=== PATIENT | female | born 1990 | race Caucasian/White ===

== ENCOUNTER 2021-07-01 06:31 | Inpatient (IN) | payer BC, SELFPAY ==
[2021-07-01] VITALS (57 sets, daily range): BP systolic 104–136; BP diastolic 64–115; PULSE 30–157; RESP 14–18; TEMP 36.3–37.1; O2SAT 98–100; BMI 25.9
--- NOTE | 2021-07-01 07:22 | PM.IMHP ---
H&P: HPI History of Present Illness Date/Time: -year-old 1 para 0 whose last menstrual period was 10/09/2020 whose EDC is 07/16/2021, confirmed by 10 week ultrasound presents with spontaneous rupture membranes at term with breech presentation. This was apparently a known breech presentation and she was scheduled for on the she ruptured membranes approximately 0330 and is doron regularly and has 4cm and breech. section has been discussed with risks and benefits discussed in full 07:22 Chief Complaint: rupture membranes at term Review of Systems Review of Systems: All systems reviewed & are unremarkable except as noted in HPI and below PMFSH Family History Family History Sibling Diabetes mellitus Father Hypertension Grandparent Alzheimer disease Social History Social History Substance use: never Spiritual care concerns: No Meds Home Medications and Allergies Home Medications Medication Instructions Recorded Confirmed Type amoxicillin 500 mg PO Q8H 06/26/21 06/26/21 History prenat.vits,markell,[id number] 1 tablet PO DAILY 06/26/21 06/26/21 History [ #2] Allergies Allergy/AdvReac Type Severity Reaction Status Date / Time No Known Allergies Allergy Verified 06/26/21 12:28 Vital Signs Vital Signs - 24 hr 07/01/21 06:57 07/01/21 07:00 07/01/21 07:15 Pulse Rate 79 89 89 Blood Pressure 121/81 118/79 123/84 Exam Const: General: no acute distress Eyes: General: appearance normal, both eyes and all related structures Neck: Neck: supple and no JVD Thyroid: thyroid normal Resp: Effort & Inspection: normal respiratory effort Auscultation: clear to auscultation bilaterally Cardio: Rate: regular rate Rhythm: regular rhythm GI: Inspection: non-distended GI Palp: Yes Soft to palpation, No Tenderness to palpation present (GI) and No Guarding due to palpation present (GI) Auscultation: normal bowel sounds : External Female Exam: normal external appearance Speculum Exam - Vagina: normal appearance of the vagina and other ( clear fluid is leaking) Speculum Exam - Cervix: Cervical os closed ( cervix is 4cm by RN exam. Bedside ultrasound reveals natalie breech present) and Other cervical findings present ( contractions are irregular and heart tones were reassuring) Skin: General skin exam: no rashes or lesions noted Extrem: General: normal to inspection and no edema Psych: Mental Status: mental status grossly normal Affect: normal affect Assessment and Plan Additional Plan impression: Term with spontaneous rupture membranes breech Plan primary low-transverse section
--- NOTE | 2021-07-01 07:25 | WPDHPUPDATE1 ---
History and Physical Update Update Date/Time: 07/01/21 07:25 History and Physical has been reviewed, including an updated exam of the patient. There are NO changes in the patient's condition. Risks, benefits, and alternatives have been discussed and questions answered. Patient agrees to proceed with procedure.
[2021-07-01 07:36] LABS: Basophils Percent Auto 0.3 % (0.2-1.2); Eosinophils Absolute Auto 0.1 K/mm3 (0-0.3); Eosinophils Percent Auto 0.6 % (0-4.4); Hematocrit 34.5 % (37.0-47.0); Hemoglobin 11.8 g/dL (12.0-15.0); Immature Granulocyte Absolute 0.14 K/mm3 (0.00-0.031); Immature Granulocyte Percent A 1.4 % (0-0.5); Lymphocytes Absolute Auto 2.28 K/mm3 (0.9-3.2); Lymphocytes Percent Auto 22.1 % (18.3-44.2); Mean Corpuscular HGB Conc 34.2 g/dl (32-36); Mean Corpuscular Hemoglobin 31.7 pg (26-34); Mean Corpuscular Volume 92.7 fl (80-100); Mean Platelet Volume 10.1 fl (7.4-10.4); Monocytes Absolute Auto 0.6 K/mm3 (0.1-0.6); Monocytes Percent Auto 5.6 % (2.6-8.5); Neutrophils Absolute Auto 7.2 K/mm3 (1.3-6.7); Platelet Count Result 251 k/mm3 (150-375); Red Blood Count 3.72 M/mm3 (4.2-5.4); Red Cell Distribution Width 12.3 % (11.5-14.5); White Blood Count 10.3 K/mm3 (4.5-10.0)
--- NOTE | 2021-07-01 07:38 | LDADM ---
This patient, Erinn Blas, was admitted to Labor/Delivery/Recovery 105 on 07/01/21 at 06:31. Plans for labor, pain management and were discussed with patient. Patient/family oriented to hospital policies and general routines including ID bracelet, bed and alarms, visiting hours, pain management, procedures, bathroom and other care routines, personal items, smoking policy, room service/diet and guest tray routines, infant security routines, and visiting hours. Patient/Family are encouraged to report perceived risks to care and to ask questions if they do not understand what they are told or what they should do. See OBIX for further documentation.
[2021-07-01] MEDS: LACTATED RINGERS 1,000 ML 125 ML IV CONT (07:47)
[2021-07-01] MEDS: FAMOTIDINE 20 MG/2 ML VIAL IV PUSH (07:57)
--- NOTE | 2021-07-01 08:04 | WPDANESEPPF ---
Anes - Initial Pre Proc Eval Procedure: Operation Date: 07/01/21 08:00 Proposed Procedures p Section - Chance Apple MD Date/Time: 07/01/21 08:04 Surgeon: Marcela Pre Op Diagnosis: Breech Patient Data Age: 31 Gender: F Height: 1.78 m Weight: 82 kg Last Vital Signs Pulse 77 07/01/21 07:30 BP 133/78 07/01/21 07:30 Allergies Allergy/AdvReac Type Severity Reaction Status Date / Time No Known Allergies Allergy Verified 06/26/21 12:28 Home Medications Medication Instructions Recorded Confirmed Type amoxicillin 500 mg PO Q8H 06/26/21 06/26/21 History prenat.vits,markell,[id number] 1 tablet PO DAILY 06/26/21 06/26/21 History [ #2] Laboratory Tests 07/01/21 07/01/21 07:23 07:23 WBC 10.3 K/mm3 H K/mm3 (4.5-10.0) RBC 3.72 M/mm3 L M/mm3 (4.2-5.4) Hgb 11.8 g/dL L g/dL (12.0-15.0) Hct 34.5 % L % (37.0-47.0) MCV 92.7 fl fl (80-100) MCH 31.7 pg pg (26-34) MCHC 34.2 g/dl g/dl (32-36) RDW 12.3 % % (11.5-14.5) Plt Count 251 k/mm3 k/mm3 (150-375) MPV 10.1 fl fl (7.4-10.4) Immature Gran % (Auto) 1.4 % H % (0-0.5) Neut % (Auto) 70.0 % % (45.5-73.1) Lymph % (Auto) 22.1 % % (18.3-44.2) [place] % (Auto) 5.6 % % (2.6-8.5) Eos % (Auto) 0.6 % % (0-4.4) Baso % (Auto) 0.3 % % (0.2-1.2) Lymph # (Auto) 2.28 K/mm3 K/mm3 (0.9-3.2) [place] # (Auto) 0.6 K/mm3 K/mm3 (0.1-0.6) Eos # (Auto) 0.1 K/mm3 K/mm3 (0-0.3) Baso # (Auto) 0.0 K/mm3 K/mm3 (0.0-0.1) Abs Immat Gran (auto) 0.14 K/mm3 H K/mm3 (0.00-0.031) Absolute Neuts (auto) 7.2 K/mm3 H K/mm3 (1.3-6.7) Absolute Nucleated RBC 0.0 K/mm3 K/mm3 (0.0-0.012) Nucleated RBC % 0.0 % % (0.0-0.2) RPR Pending Patient hx anesthesia problems: none Family hx anesthesia problems: none Results Review: All pre-operative results and documents have been reviewed as part of the pre-operative evaluation. [facility] [place] Family History Family History Sibling Diabetes mellitus Father Hypertension Grandparent Alzheimer disease Social History Social History Smoking status: Never smoker Substance use: never Spiritual care concerns: No Anes - Eval Final PreProcedure Day of Procedure 07/01/21 08:04 Patient weight: overweight Heart: regular rate and rhythm Lungs: clear to auscultation and normal air movement Airway: Mallampati scale class II Neurological: alert and oriented Last oral intake: >/= 8 hours ASA classification: II Emergent: no Anesthetic plan: proceed Anesthesia type and monitoring: regional spinal and standard monitoring Results Review: All pre-operative results and documents have been reviewed as part of the pre-operative evaluation. Informed Consent: The patient's anesthetic plan and its attendant risks and benefits were discussed with the patient/family/POA. Questions were solicited and answers provided to the satisfaction of the patient/family/POA.
[2021-07-01] MEDS: ceFAZolin 2 GM/D5W 50 ML 2 GM/50 ML BAG IVPB (08:06)
--- NOTE | 2021-07-01 08:57 | W.PM.PROC2 ---
Procedure Note - Detailed Date of Procedure 07/01/21 Pre-op Diagnosis Breech Post-op Diagnosis same Procedure Performed Primary low-transverse section Surgeon Eduardo Jacobsen MD Anesthesia spinal Indications This is a 31-year-old 1 para 0 who ruptured membranes at 38 weeks with breech presentation Findings Breech male 6lb 12oz Apgars 9 and 9 at 1 and 5minutes respectively Description of Procedure Patient was admitted with spontaneous rupture membranes in active labor 38 weeks gestation. Ultrasound revealed breech presentation. After obtaining informed consent she was wheeled to the back prepped draped in the normal sterile fashion placed in the supine position. Under excellent spinal anesthetic the abdomen was entered in Pfannenstiel fashion progressive layers of fascia. The fascia incised midline number out fashion bilaterally underlying muscles sharply dissected parietal peritoneum 0 by Shirley clamps. This was sharply dissected superiorly and inferiorly to the dome bladder. Bladder blade was placed a bladder flap was formed and a bladder blade returned. A low transverse incision made in the breech delivered to the maternal right. The legs were delivered the arms were delivered medially and the head delivered in the flexed position. The cord was clamped x2 and cut and infant passed off the table given Apgars of 9 [id number]. Cord blood was drawn and placenta delivered intact manually. Uterus delivered on the abdomen wrapped in a moist towel. After assuring no membranes or debris remained in the uterus uterus was closed with continuous running locking 0 Vicryl from lateral edge to lateral edge followed by a 2nd imbricating running locking 0 Vicryl from lateral edge to lateral edge. Hemostasis was assured. Ovaries and tubes appeared within normal limits and the uterus returned the abdomen. Blood clots and debris removed from the pelvis and the uterine incision inspected 1 last time and noted be hemostatic. The laps removed and accounted for. The fascia closed with continuous running 0 Vicryl from lateral edge to midline bilaterally. Irrigation the subcutaneous layer and the skin closed with 4 Monocryl and glue. QBL was 355. All sponge, needle, instrument counts were correct. There were no immediate complications Estimated Blood Loss 355 Drains No Packing No Pathology none sent Complications No immediate complications Condition stable Disposition floor
[2021-07-01] MEDS: OXYTOCIN 30 UNITS/NS 500 ML 30 UNITS/500 ML BAG 125 UNITS IV CONT (09:40)
--- NOTE | 2021-07-01 11:18 | OBPPTRN ---
Patient transferred to post room # 285 via stretcher and transferred to bed via maxi air.Support person present and in open crib. Oriented to unit, room, information board, rooming in, admission packet and security measures. PT introductions made and plan of care discussed per post op c section, pain management, breast feeding, daily care activities. PT and spouse both recipients of such instructions this shift. No barriers to learning identified and pt received instructions via one to one discussion, mom baby care guide and demonstrations. Patient verbalizes understanding.
[2021-07-01] MEDS: LANOLIN (LANSINOH) 7.5 GM CREAM 1 APPLIC TOPICAL (12:19)
[2021-07-01] MEDS: LANOLIN (LANSINOH) 7.5 GM CREAM 1 APPLIC (12:26)
[2021-07-01] MEDS: SIMETHICONE 80 MG TAB.CHEW (12:26)
[2021-07-01] MEDS: DEXTROSE 5%/0.45% SOD CHL 1,000 ML 125 ML IV CONT (14:35)
[2021-07-01] MEDS: HYDROcodone/acetaminophen (*CRX) 5-325 MG TABLET 1 TAB (15:14)
[2021-07-01] MEDS: DOCUSATE SODIUM 100 MG CAPSULE PO (16:21)
[2021-07-01] MEDS: SIMETHICONE 80 MG TAB.CHEW PO (16:21)
[2021-07-01] MEDS: HYDROcodone/acetaminophen (*CRX) 5-325 MG TABLET 1 TAB PO ×2 (16:22→21:31)
[2021-07-01] MEDS: KETOROLAC 30 MG/ML VIAL (*BKC) IV PUSH (16:23)
[2021-07-02] MEDS: KETOROLAC 30 MG/ML VIAL (*BKC) IV PUSH (00:23)
[2021-07-02 00:44] VITALS: BP 123/73; PULSE 67; RESP 18; TEMP 36.8
[2021-07-02 05:00] VITALS: BP 121/77; PULSE 70; RESP 18; TEMP 36.9
[2021-07-02 05:36] LABS: Basophils Percent Auto 0.3 % (0.2-1.2); Eosinophils Absolute Auto 0.2 K/mm3 (0-0.3); Eosinophils Percent Auto 1.2 % (0-4.4); Hematocrit 31.7 % (37.0-47.0); Hemoglobin 10.5 g/dL (12.0-15.0); Immature Granulocyte Absolute 0.07 K/mm3 (0.00-0.031); Immature Granulocyte Percent A 0.6 % (0-0.5); Lymphocytes Absolute Auto 2.25 K/mm3 (0.9-3.2); Lymphocytes Percent Auto 18.4 % (18.3-44.2); Mean Corpuscular HGB Conc 33.1 g/dl (32-36); Mean Corpuscular Hemoglobin 31.3 pg (26-34); Mean Corpuscular Volume 94.6 fl (80-100); Monocytes Absolute Auto 0.7 K/mm3 (0.1-0.6); Monocytes Percent Auto 5.8 % (2.6-8.5); Neutrophils Percent Auto 73.7 % (45.5-73.1); Platelet Count Result 212 k/mm3 (150-375); Red Blood Count 3.35 M/mm3 (4.2-5.4); Red Cell Distribution Width 12.5 % (11.5-14.5); White Blood Count 12.2 K/mm3 (4.5-10.0)
--- NOTE | 2021-07-02 07:01 | PM.OBPNVD ---
OB - PN: Subj Subjective Date/time seen: 07/02/21 07:01 Patient comments: no complaints and pain well controlled baby status: doing well and nursing well OB - PN: Obj Data Labs CBC & Chem 7: 07/02/21 05:29 Labs: Laboratory Results - last 24 hr 07/01/21 07/01/21 07/02/21 07:23 07:23 05:29 WBC 10.3 H 12.2 H RBC 3.72 L 3.35 L Hgb 11.8 L 10.5 L Hct 34.5 L 31.7 L MCV 92.7 94.6 MCH 31.7 31.3 MCHC 34.2 33.1 RDW 12.3 12.5 Plt Count 251 212 MPV 10.1 10.0 Immature Gran % (Auto) 1.4 H 0.6 H Neut % (Auto) 70.0 73.7 H Lymph % (Auto) 22.1 18.4 [place] % (Auto) 5.6 5.8 Eos % (Auto) 0.6 1.2 Baso % (Auto) 0.3 0.3 Lymph # (Auto) 2.28 2.25 [place] # (Auto) 0.6 0.7 H Eos # (Auto) 0.1 0.2 Baso # (Auto) 0.0 0.0 Abs Immat Gran (auto) 0.14 H 0.07 H Absolute Neuts (auto) 7.2 H 9.0 H Absolute Nucleated RBC 0.0 0.0 Nucleated RBC % 0.0 0.0 Blood Type A Positive Antibody Screen Negative OB - PN A/P Plan day: 1 Plan: routine care Time Spent With Patient Time: Total time spent is greater than 50% in coordination of care (as documented) at patient's floor/unit and/or counseling patient: Time with patient: less than 15 minutes Review of Systems Review of Systems: All systems reviewed & are unremarkable except as noted in HPI and below Exam Const: General: no acute distress Eyes: General: appearance normal, both eyes and all related structures Neck: Neck: supple and no JVD Thyroid: thyroid normal Resp: Effort & Inspection: normal respiratory effort Auscultation: clear to auscultation bilaterally Cardio: Rate: regular rate Rhythm: regular rhythm GI: Inspection: normal to inspection and incision (cdi) Percussion: Yes normal to percussion : General: Yes bladder normal to palpation External Female Exam: normal external appearance Speculum Exam - Vagina: normal vaginal discharge and No vaginal bleeding Speculum Exam - Cervix: nontender Bimanual exam- vagina & uterus: bladder normal to palpation and No Cervical tenderness present OB/external & speculum: No vaginal bleeding Skin: General skin exam: no rashes or lesions noted Extrem: General: normal to inspection and no edema Psych: Mental Status: mental status grossly normal Affect: normal affect
--- NOTE | 2021-07-02 07:18 | WPDANLDPN2 ---
Anes-Prog Note L&D Date/Time: 07/02/21 07:18 Comfortable throughout: section Neuraxial method: spinal Epidural/Spinal procedure site: clean & non-tender Neuro status: Neuro function grossly intact. Cardiovascular status: normal Respiratory status: normal Airway patency: baseline Mental status: baseline Post-Op hydration status: normal Vital Signs: Last Vital Signs Temp 36.9 C 07/02/21 05:00 Pulse 70 07/02/21 05:00 Resp 18 07/02/21 05:00 BP 121/77 07/02/21 05:00 Pulse Ox 99 07/01/21 16:20 Pain score (VAS): 3 I/O: Intake & Output 07/01/21 07/01/21 07/02/21 15:59 23:59 07:59 Intake Total 366 223 1319 Output Total 805 1000 1750 Balance -305 -600 -250 Post-procedural complaints: none Patient feedback: Patient satisfied with anesthetic care.
--- NOTE | 2021-07-02 07:18 | WPDANLDNPN2 ---
Anes-Prog Note L&D-Neuraxial Date/Time: 07/02/21 07:18 Neuraxial medications: intrathecal PF morphine Opiod-related complaints: none Patient feedback: Patient satisfied with post-operative pain management.
--- NOTE | 2021-07-02 07:30 | PC.NURSE ---
PT introductions made and plan of care discussed per post op c section, pain management, bottle feeding, daily care activities. PT and spouse both recipients of such instructions and no barriers to learning identified at this time. PT received instructions per one to one discussion, mom baby care guide and demonstrations per this shift. PT verbalized understanding of such care
[2021-07-02] MEDS: SIMETHICONE 80 MG TAB.CHEW PO (09:24)
[2021-07-02] MEDS: IBUPROFEN 600 MG TABLET PO ×3 (09:24→21:51)
[2021-07-02] MEDS: MULTIVIT/MIN/PREN/FOL AC/IRON TABLET 1 TAB PO (09:24)
[2021-07-02 09:25] VITALS: BP 131/76; PULSE 78; RESP 18; TEMP 36.9; O2SAT 100
[2021-07-02] MEDS: DOCUSATE SODIUM 100 MG CAPSULE PO ×2 (09:25→19:17)
[2021-07-02] MEDS: HYDROcodone/acetaminophen (*CRX) 5-325 MG TABLET 1 TAB PO ×3 (09:25→18:45)
[2021-07-02 19:10] VITALS: BP 123/77; PULSE 75; RESP 18; TEMP 37; O2SAT 100
[2021-07-03] MEDS: HYDROcodone/acetaminophen (*CRX) 5-325 MG TABLET 1 TAB PO ×5 (00:52→19:24)
[2021-07-03] MEDS: IBUPROFEN 600 MG TABLET PO ×3 (05:26→19:23)
[2021-07-03] MEDS: SIMETHICONE 80 MG TAB.CHEW PO ×2 (05:28→20:40)
[2021-07-03] MEDS: DOCUSATE SODIUM 100 MG CAPSULE PO ×2 (08:06→16:23)
[2021-07-03] MEDS: MULTIVIT/MIN/PREN/FOL AC/IRON TABLET 1 TAB PO (08:06)
[2021-07-03 08:15] VITALS: BP 134/83; PULSE 80; RESP 16; TEMP 36.8; O2SAT 100
--- NOTE | 2021-07-03 08:47 | PM.OBPNVD ---
OB - PN: Subj Subjective Date/time seen: 07/03/21 08:47 Narrative: Pain OK. Tolerating diet. OB - PN: Obj Data Labs CBC & Chem 7: 07/02/21 05:29 OB - PN A/P Plan Comments: A: POD#2, doing well. P: Routine care. Exam Narrative: AVSS I/O OK ABD soft, nontender, fundus firm. Incision c/d/i. EXT nontender
--- NOTE | 2021-07-03 09:05 | PC.NURSE ---
Mother called out for assist with feeding, reporting mix crusher operator discussed supplementation after due to weight loss. is at 9% at 48 hours. Mother states she feels is latching and nursing well. is able to freely thrust tongue past gum ridge and flange both lips. Skin is intact on both nipples, no redness and bruising noted. Discussed establishing in the late may be more difficult due to their immaturity, infant may be less alert, have less stamina, and have greater difficulty with latch, suck, and swallow. Infant?s feeding may impact mother?s milk supply, pumping may need to be initiated until milk supply is well established and infant is able to effectively breastfeed without supplementation. Reviewed infant feeding cues, frequencies, duration of feedings, feeding elimination flow sheet, and signs of adequate intake. Demonstrated stimulation techniques to wake infant for feeding. Assisted with to breast. Reviewed positioning/alignment in cross cradle, holding breast in ?U? hold and guided asymmetrical latch on. Reviewed rational for each. Infant able to latch correctly within a few attempts. nursed eagerly with steady draws and occasional swallowing noted, followed by long pausing noted. Reviewed signs of a correct latch, effective nursing and suck swallow ratio. Suggested mother stimulate while feeding to increase stimulation for milk supply, for increased intake and to assist with maintaining deep latch. Infant would respond to simulation with bursts of nursing followed with long pausing. would slip to shallow latch causing tenderness. Demonstrated how to adjust latch more deeply while feeding as needed. Mother reports she can feel the difference in latch with no tenderness. Discussed the difference of effective vs ineffective feeding. Reviewed infant is latching with good burst of suckling, he is not feeding consistently with adequate milk transfer at this time and could benefit from supplement after . Nipple care reviewed of lanolin after feedings, warm compresses as needed. Mother would prefer to weight for next feeding and weight check to be done. Instructed mother to call out for RN assistance if she is unable to latch for feeding or she has discomfort with nursing. Instructed feeding should be initiated three hours from start of last feeding or if feeding cues are noted before. Mother voiced understanding of information shared
[2021-07-03 10:10] LABS: Rapid Plasma Reagin Non-Reactive (NonReactive)
[2021-07-03] MEDS: LANOLIN (LANSINOH) 7.5 GM CREAM 1 APPLIC TOPICAL (10:59)
--- NOTE | 2021-07-03 12:30 | PC.NURSE ---
weight check down 40 grams from last weight check. Mother is now willing to supplement and initiate pumping. Demonstrated stimulation techniques to wake infant for feeding. Assisted with to breast. Reviewed positioning/alignment in cross cradle, holding breast in ?U? hold and guided asymmetrical latch on. Reviewed rational for each. Infant able to latch correctly within a few attempts. nursed eagerly with steady draws and occasional swallowing noted, followed by long pausing noted. Reviewed signs of a correct latch, effective nursing and suck swallow ratio. Suggested mother stimulate while feeding to increase stimulation for milk supply, for increased intake and to assist with maintaining deep latch. Infant would respond to simulation with bursts of nursing followed with long pausing. Infant has more rhythmical draws with longer bursts of suckling list feeding. Infant would slip to shallow latch causing tenderness. Demonstrated how to adjust latch more deeply while feeding as needed. Mother reports she can feel the difference in latch with no tenderness. Demonstrated paced feeding, infant nippled eagerly. Breast pump provided due to ineffective feeding. Instructions given on breast pump care and usage, pumping schedule, nipple care, and collection and storage of breast milk. Encouraged [id number], breast massage and manual expression to stimulate supply. Assessed patient for correct flange size, placement and draw. Patient verbalizes and demonstrates understanding of instructions. Instructed mother to call out for RN assistance if she is unable to latch for feeding or she has discomfort with nursing. Instructed feeding should be initiated three hours from start of last feeding or if feeding cues are noted before. Mother voiced understanding of information shared
[2021-07-03 20:20] VITALS: BP 131/82; PULSE 70; RESP 16; TEMP 36.3; O2SAT 99
--- NOTE | 2021-07-03 20:30 | PC.NURSE ---
Patient viewed the discharge video Mother & Baby Care, The First Two Weeks . Patient was given the opportunity and encouraged to ask questions. Patient verbalized understanding of information shared and has been given the mother/baby guide for home reference.
[2021-07-04] MEDS: HYDROcodone/acetaminophen (*CRX) 5-325 MG TABLET 1 TAB PO ×2 (00:02→09:24)
[2021-07-04] MEDS: SIMETHICONE 80 MG TAB.CHEW PO (00:02)
[2021-07-04 08:15] VITALS: BP 123/85; PULSE 81; RESP 16; TEMP 36.8; O2SAT 100
--- NOTE | 2021-07-04 08:56 | P.DS_ITS ---
DS: Admitting Diagnosis Discharge Date 07/04/21 Admitting Diagnosis IUP at term SROM Breech presentation DS: Discharge Diagnosis Discharge Diagnosis (1) Breech presentation delivered: Code(s): O32.1XX0 - Maternal care for breech presentation, not applicable or unspecified Status: Acute (2) SROM (spontaneous rupture of membranes): Status: Acute (3) Term : Code(s): Z34.90 - Encounter for supervision of normal , unspecified, unspecified trimester Status: Acute OB - DS: Summary OB Procedures : None OB Procedures Intrapartum: OB Procedures: : None Peripartum Data Procedures: Procedures Operation Date: 07/01/21 08:00 Actual Procedure Side Surgeon p Section Eduardo Jacobsen MD DS: Data Data Completed and Pending Labs on day of discharge: Labs from last 24 hours 07/01/21 07:23 RPR Non-reactive Discharge Plan Discharge Attending physician on discharge: Chance Apple Discharging Clinician: Chance Apple Patient Disposition: Home, Self-Care Activity: may shower, may drive after 2 weeks and pelvic rest Diet: regular Wound Care Instructions: incision open to air Discharge Instructions: Call or return if temperature above 100.4? F, increased abdominal pain, increased vaginal bleeding or any new problems. Stand Alone Forms: General Discharge Information Follow-up/Referrals: Chance Apple MD [Physician] - 4 Weeks Discharge Medications: New ibuprofen 600 mg tablet 600 mg PO QID PRN (Reason: cramps) Qty: 30 RF: 0 hydrocodone-acetaminophen 5-325 mg tablet 1 - 2 tablet PO Q6H PRN (Reason: pain) Qty: 30 RF: 0 No Action amoxicillin 500 mg Tablet 500 mg PO Q8H RF: 0 #2 Tablet 1 tablet PO DAILY RF: 0 Date of admission: 07/01/21 06:31 Primary Care Provider: PHYSICIAN,DIRECTOR OF PRODUCT DEVELOPMENT Admitting Provider: Chance Apple Attending physician on admission: Chance Apple Condition: Stable
--- NOTE | 2021-07-04 08:56 | PM.OBPNVD ---
OB - PN: Subj Subjective Date/time seen: 07/04/21 08:56 Narrative: Pain OK. Tolerating diet. Would like to go home. OB - PN: Obj Data Labs CBC & Chem 7: 07/02/21 05:29 Labs: Laboratory Results - last 24 hr 07/01/21 07:23 RPR Non-reactive OB - PN A/P Plan Comments: A: POD#3, doing well. P: Home to f/u 4 weeks. Exam Narrative: AVSS ABD soft, nontender, fundus firm. Incision c/d/i. EXT nontender
[2021-07-04] MEDS: IBUPROFEN 600 MG TABLET PO (09:23)
[2021-07-04] MEDS: MULTIVIT/MIN/PREN/FOL AC/IRON TABLET 1 TAB PO (09:23)
[2021-07-04] MEDS: DOCUSATE SODIUM 100 MG CAPSULE PO (09:23)
--- NOTE | 2021-07-04 09:45 | PC.NURSE ---
Observed mother is able to independently latch infant with appropriate positioning/alignment. She denies any nipple discomfort, is feeding as required and waking infant to feed if needed. is more awake and making eager attempts with and maintaining latch. Infant has had several effective feedings in the past 24 hours, all feedings is supplemented. Infant is currently meeting outcomes for weight, output, jaundice and feeding frequencies. has had weight loss, and infant PCP has suggested supplement after all breastfeedings until seen at follow up visit. Mother continues to pump after all feedings without difficulties or discomfort. Mother has a pump for home use. Feeding plan discussed, Feeding Plan is for mother to put infant to breast each feeding for up to 30 minutes, then pace feed supplement 20-25 mls and pump for 10-15 minutes. Discussed increasing supplementation as infant requires to satisfactions. Reviewed paced feeding and suggested to stop when is satisfied, as long as infant is having required output. With increased supplementation infant may not want to feed for 4 hours. Mother will continue to pump on feeding schedule and will increase session to 20 minutes if pumping every 4 hours. If infant begins to nurse effectively with long draws and frequent swallowing noted, infant may decrease supplementation and discontinue pumping. Advised not to discontinue supplement until a pre/post feeding evaluation by infant PCP, Follow up RN or LC is completed. Mother states she feels confident to continue feeding plan at home. Reviewed transition to breast milk, signs of adequate intake, and engorgement/relief. Instructed to call ICP if intake/output less than required. Reviewed regular medications mother is taking. Information provided per [place]. Reviewed community resources on the [facility] website and in the Mom/Baby guide. Information on outpatient services provided. Mother has no further questions at this time.
[2021-07-05 10:45] VITALS: BP 138/79; PULSE 78; RESP 16; TEMP 37.3; O2SAT 100
== END 2021-07-04 14:50 | disposition home or self-care (01) | DRG 788 ==
LOC: ANHLDR 08:04 → ANHOB2 11:30
PROVIDERS: Admitting Provider Obstetrics & Gynecology; Visit Provider Obstetrics & Gynecology
DX: O32.1XX0 Maternal care for breech presentation, not applicable or unspecified (principal); O69.2XX0 Labor and delivery complicated by other cord entanglement, with compression, not applicable or unspecified; Z3A.37 37 weeks gestation of pregnancy; Z37.0 Single live birth
CPT/HCPCS: 36415; 84112; 85025; 86592; 86850; 86900; 86901; A9270; J0690; J1885; J2274; J2370; J2405; J2590; J7120

== ENCOUNTER 2024-03-14 10:43 | Outpatient (CLI) | payer BC, SELFPAY ==
[2024-03-14 11:13] LABS: Hemoglobin 12.1 g/dL (12.0-15.0); Mean Corpuscular HGB Conc 33.6 g/dl (32-36); Mean Corpuscular Hemoglobin 31.8 pg (26-34); Mean Corpuscular Volume 94.7 fl (80-100); Mean Platelet Volume 9.9 fl (7.4-10.4); Platelet Count Result 258 k/mm3 (150-375); Red Cell Distribution Width 13.4 % (11.5-14.5); White Blood Count 9.2 K/mm3 (4.5-10.0)
[2024-03-15 01:21] LABS: Rapid Plasma Reagin Non-Reactive (NonReactive)
== END 2024-03-14 10:44 | disposition home or self-care (01) ==
LOC: ANHLAB 10:46
PROVIDERS: Visit Provider Obstetrics & Gynecology
DX: Z34.93 Encounter for supervision of normal pregnancy, unspecified, third trimester (principal); Z3A.00 Weeks of gestation of pregnancy not specified
CPT/HCPCS: 36415; 85027; 86592; 86850; 86900; 86901

== ENCOUNTER 2024-03-16 10:02 | Inpatient (IN) | payer BC, SELFPAY ==
[2024-03-16] VITALS (51 sets, daily range): BP systolic 104–135; BP diastolic 64–117; PULSE 43–92; RESP 14–19; TEMP 35.7–36.6; O2SAT 97–100; BMI 26.2
[2024-03-16] MEDS: ACETAMINOPHEN 500 MG TABLET 1000 MG PO (10:29)
[2024-03-16] MEDS: LACTATED RINGERS 1,000 ML 125 ML IV CONT ×2 (10:45→13:52)
--- NOTE | 2024-03-16 10:49 | LDADM ---
This patient, Erinn Blas, was admitted to Labor/Delivery/Recovery 119 on 03/16/24 at 10:02. Plans for labor, pain management and were discussed with patient. Patient/family oriented to hospital policies and general routines including ID bracelet, bed and alarms, visiting hours, pain management, procedures, bathroom and other care routines, personal items, smoking policy, room service/diet and guest tray routines, infant security routines, and visiting hours. Patient/Family are encouraged to report perceived risks to care and to ask questions if they do not understand what they are told or what they should do. See OBIX for further documentation.
--- NOTE | 2024-03-16 11:41 | PM.IMHP ---
H&P: HPI History of Present Illness Date/Time: 03/16/24 11:41 Chief Complaint: Here for repeat c section Narrative: 33 y/o at 39 3/7 weeks here for repeat . GBS neg. Review of Systems Review of Systems: All systems reviewed & are unremarkable except as noted in HPI and below PMFSH Past Medical History Medical History History of depression Surgical History Surgical History (Updated 03/16/24 @ 11:43 by Chance Apple MD) History of delivery Family History Family History Sibling Diabetes mellitus Father Hypertension Grandparent Alzheimer disease Social History Social History Smoking status: Never smoker Substance use: never Do You Feel Safe in your Home?: Yes Lack of Transportation: No Lack of Food: Never True Current Housing: I Have Housing Concerned About Future Housing: No Difficulty Paying Gas/Electric Bills: No Difficulty Paying for Meds: No Currently Unemployed: No Education: Bachelor's Degree Difficulty w/ Childcare or Family Care: No Spiritual care concerns: No Meds Home Medications and Allergies Home Medications Medication Instructions Recorded Confirmed Type prenat.vits,markell,rek-gmtd-vwbve 1 tablet PO DAILY 06/26/21 03/16/24 History fluoxetine 10 mg capsule 10 mg PO DAILY 02/24/24 03/16/24 History Allergies Allergy/AdvReac Type Severity Reaction Status Date / Time No Known Allergies Allergy Verified 03/16/24 10:46 Vital Signs Vital Signs - 24 hr 03/16/24 10:48 03/16/24 10:26 03/16/24 10:31 Pulse Rate 67 70 Blood Pressure 119/72 122/73 Oxygen Delivery Room Air 03/16/24 10:45 03/16/24 10:46 Pulse Rate 75 75 Blood Pressure 123/73 123/73 Oxygen Delivery Exam Const: Orientation/consciousness: patient oriented x3 Other: Well-developed, well-nourished female in no acute distress. Neck: Thyroid: thyroid normal Lymphatic: no lymphadenopathy noted (in neck, axilla or inguinal nodes) Resp: Effort & Inspection: normal respiratory effort Auscultation: clear to auscultation bilaterally Cardio: Rate: regular rate Rhythm: regular rhythm Heart sounds: S1 normal heart sound present and S2 normal heart sound present GI: Other: ABD: Soft, nontender, nondistended, gravid. FH 39 cm. FHR 150 bpm. No guarding or rebound tenderness. No hepatosplenomegaly. : General: Yes no CVA tenderness Other: Cervix closed Back/Spine/Pelvis: Back: no CVA tenderness Skin: General skin exam: normal color and no rashes or lesions noted Neuro: General: patient oriented x3 Extrem: Other: Extremities: nontender with no edema Psych: Mental Status: mental status grossly normal Affect: normal affect Assessment and Plan Assessment and plan (1) Term : Code(s): Z34.90 - Encounter for supervision of normal , unspecified, unspecified trimester Status: Acute Assessment and Plan: A: IUP at 39 3/7 weeks with prior , desiring repeat. P: Offered repeat . She understands risks of surgery to include risks of anesthesia, risks of pain, infection, bleeding, blood products, thromboembolic phenomena and damage to adjacent structures such as bowel, bladder, ureters, blood vessels and nerves. She understands all these risks and elects to proceed with surgery. (2) History of delivery: Code(s): Z98.891 - History of uterine scar from previous surgery Status: Acute
--- NOTE | 2024-03-16 11:42 | P.PNAN_ITS ---
Anes - Initial Pre Proc Eval Procedure: Operation Date: 03/16/24 12:00 Proposed Procedures p Repeat Section - Chance Apple MD Date/Time: 03/16/24 11:42 Surgeon: Chance Apple MD Pre Op Diagnosis: Repeat Patient Data Age: 33 Gender: F Height: 1.78 m Weight: 83 kg Last Vital Signs Pulse 75 03/16/24 10:46 BP 123/73 03/16/24 10:46 O2 Del Method Room Air 03/16/24 10:48 Allergies Allergy/AdvReac Type Severity Reaction Status Date / Time No Known Allergies Allergy Verified 03/16/24 10:46 Home Medications Medication Instructions Recorded Confirmed Type prenat.vits,markell,qaw-wgbz-bcces 1 tablet PO DAILY 06/26/21 03/16/24 History fluoxetine 10 mg capsule 10 mg PO DAILY 02/24/24 03/16/24 History Laboratory Tests 03/16/24 10:38 HIV 1&2 Ab/P24 Ag 4thGn Pending Patient hx anesthesia problems: none Family hx anesthesia problems: none Results Review: All pre-operative results and documents have been reviewed as part of the pre- operative evaluation. [facility] Past Medical History Medical History History of depression Surgical History Surgical History (Updated 03/16/24 @ 11:43 by Chance Apple MD) History of delivery Family History Family History Sibling Diabetes mellitus Father Hypertension Grandparent Alzheimer disease Social History Social History Smoking status: Never smoker Substance use: never Do You Feel Safe in your Home?: Yes Lack of Transportation: No Lack of Food: Never True Current Housing: I Have Housing Concerned About Future Housing: No Difficulty Paying Gas/Electric Bills: No Difficulty Paying for Meds: No Currently Unemployed: No Education: Bachelor's Degree Difficulty w/ Childcare or Family Care: No Spiritual care concerns: No Anes - Eval Final PreProcedure Day of Procedure 03/16/24 11:42 Patient weight: obese Heart: regular rate and rhythm Lungs: clear to auscultation and normal air movement Airway: Mallampati scale class II Neurological: alert and oriented Last oral intake: >/= 8 hours ASA classification: II Emergent: no Anesthetic plan: proceed Anesthesia type and monitoring: regional spinal and standard monitoring Results Review: All pre-operative results and documents have been reviewed as part of the pre- operative evaluation. Informed Consent: The patient's anesthetic plan and its attendant risks and benefits were discussed with the patient/family/POA. Questions were solicited and answers provided to the satisfaction of the patient/family/POA.
[2024-03-16 11:46] LABS: HIV 1/2 Ab P24 Ag Result Negative (Negative)
--- NOTE | 2024-03-16 11:51 | WPDHPUPDATE1 ---
History and Physical Update Update Date/Time: 03/16/24 11:51 History and Physical has been reviewed, including an updated exam of the patient. There are NO changes in the patient's condition. Risks, benefits, and alternatives have been discussed and questions answered. Patient agrees to proceed with procedure.
[2024-03-16] MEDS: FAMOTIDINE 20 MG/2 ML VIAL IV PUSH (11:57)
[2024-03-16] MEDS: ONDANSETRON INJ 4 MG/2 ML VIAL IV PUSH (11:57)
[2024-03-16] MEDS: ceFAZolin 2 GM/D5W 50 ML 2 GM/50 ML BAG IVPB (12:04)
--- NOTE | 2024-03-16 13:08 | P.PCNOB_ITS ---
OB - Delivery Note Procedure Delivery date: 03/16/24 Pre-op diagnosis: Previous Delivery Post-op Diagnosis: Same Induction method: None Delivery monitor: External FHT and External Uterine Procedure Performed: Repeat Surgeon: Chance Apple MD Anesthesia type: Spinal Description of Procedure/Findings: Findings: Normal-appearing uterus, tubes and ovaries. Meconium-stained fluid noted. Techniques: The patient was taken to the operating room where she was prepared and draped in the usual sterile fashion in dorsal supine position with a leftward tilt. She received cefazolin preoperatively. Spinal anesthesia was found to be adequate. A Pfannenstiel skin incision was made along the previous scar line and was carried through to the underlying layer of the fascia. The fascia was incised in the midline and the incision was extended laterally. The fascia was dissected free of the underlying rectus muscles. The rectus muscles were in the midline. The peritoneum was identified, tented up and entered sharply. The peritoneal incision was extended superiorly and inferiorly with good visualization of the bladder. The bladder blade was placed. The vesicouterine peritoneum was identified, tented up and entered sharply. The incision was extended laterally and the bladder flap was developed. The bladder blade was replaced. The uterus was then incised sharply in a transverse fashion along the lower uterine segment. The incision was extended laterally. The infant's head was delivered atraumatically to the sterile field, followed by the body. The nose and mouth were bulb suctioned. After a delay, the cord was clamped and cut. The was handed off the field. Cord blood was collected. The placenta was removed manually and was passed off the field. The uterus was exteriorized and cleared of all clots and debris. The uterine incision was reapproximated using 0 Monocryl in a running, locked fashion. A second, imbricating layer of the same suture was run. Excellent hemostasis re sulted as did excellent reapproximation of the normal anatomy. The uterus was returned the abdomen. The pelvis was irrigated copiously with warmed normal saline. Rigorous hemostasis was assured. The fascial layer was reapproximated using 0 Vicryl in a running fashion. The skin was closed with a running, subcuticular stitch of 4 0 Vicryl. Dermaflex was applied externally. Sponge, lap, needle and instrument counts were correct. The patient was taken to the recovery room in stable condition. The infant went to the nursery in stable condition. I was present and scrubbed the entire procedure. Specimen: Yes (cord blood) Estimated Blood Loss: 350 Drains: Yes (Baldwin) Packing: No Pathology: Yes (cord blood) Complications: None Condition: Stable Disposition: PACU [place] Baby Date of : 03/16/24 Time of : 12:35 Weeks of gestation at delivery: 39 Infant gender: Male Weight (pounds): 7 Weight (ounces): 2 presentation: vertex Placenta delivery description: Manual Removal and Normal Configuration Cord Vessel Description: 3 Vessels, Nuchal Cord (x2) and Delayed Cord Clamping score one minute: 8 score five minutes: 9
--- NOTE | 2024-03-16 13:10 | P.DS_ITS ---
DS: Admitting Diagnosis Discharge Date 03/18/24 Admitting Diagnosis IUP at 39 3/7 weeks Prior DS: Discharge Diagnosis Discharge Diagnosis (1) delivery delivered: Code(s): O82 - Encounter for delivery without indication Status: Acute OB - DS: Summary OB Procedures : None OB Procedures Intrapartum: OB Procedures: : None Peripartum Data Procedures: Procedures Operation Date: 03/16/24 12:00 <No data on this case meets the specified criteria> Time Spent with Patient Time attestation: Total time spent providing and/or coordinating discharge services: DS: Data Data Completed and Pending Labs on day of discharge: Labs from last 24 hours 03/16/24 10:38 HIV 1&2 Ab/P24 Ag 4thGn Negative Discharge Plan Discharge Attending physician on discharge: Chance Apple Discharging Clinician: Chance Apple Patient Disposition: Home, Self-Care Activity: may shower, may drive after 2 weeks and pelvic rest Diet: regular Wound Care Instructions: incision open to air Discharge Instructions: Call or return if temperature above 100.4? F, increased abdominal pain, increased vaginal bleeding or any new problems. Stand Alone Forms: General Discharge Information Follow-up/Referrals: Chance Apple MD [Physician] - 4 Weeks Discharge Medications: New hydrocodone-acetaminophen 5-325 mg tablet 1 - 2 tablet PO Q6H PRN (Reason: pain) Qty: 30 0RF ibuprofen 600 mg tablet 600 mg PO Q6H PRN (Reason: cramps) Qty: 30 0RF Continued prenat.vits,markell,unm-zfyd-yxqfr Tablet 1 tablet PO DAILY fluoxetine 10 mg Capsule 10 mg PO DAILY Date of admission: 03/16/24 10:02 Primary Care Provider: PHYSICIAN,MARKETING SUPPORT ASSISTANT Admitting Provider: Chance Apple Attending physician on admission: Chance Apple Condition: Stable
[2024-03-16] MEDS: OXYTOCIN 30 UNITS/NS 500 ML 30 UNITS/500 ML BAG 125 UNITS IV CONT (14:28)
--- NOTE | 2024-03-16 16:41 | PC.NURSE ---
0861. Consulted with patient to assess needs related to . Per mom she was able to breastfeed her 1st baby for a few weeks and then pumped and bottle fed. She reports she would like to exclusively breast feed this baby. We reviewed working with the infant, supporting breast, protecting her nipples with an optimal deep latch, good positioning, and good hand washing. Encouraged understanding the benefits of skin to skin, responding to feeding cues, frequencies of feeding 8-12 times in 24 hours (approximately 2-3 hours), duration of feedings, milk production, intake/output feeding sheet and signs of adequate intake encouraging swallowing at the breast. Reviewed positioning and alignment, supporting breast, off-centered (asymmetrical latch) and leading with the chin with big, open, wide gape. Infant latched optimally to the left breast in [cross cradle] position. Education given to the mother of how to visualize the suckling (with good rocking jaw motion) swallows (dropping of the lower jaw) and how to listen for drinking at the breast (the ka sound). The was [able] to maintain latch without discomfort to mother. Nipple care reviewed with optimal latch, good positioning and using clean hands when touching her breast. Resources used to facilitate learning were used from the mom and baby guide. Mother voiced understanding of the education shared, to call for assistance if the does not latch or if there is discomfort with . Reported to the Primary RN.
[2024-03-16] MEDS: HYDROcodone/acetaminophen (*CRX) 5-325 MG TABLET 1 TAB PO (17:19)
[2024-03-16] MEDS: SIMETHICONE 80 MG TAB.CHEW PO (17:19)
[2024-03-16] MEDS: LIDOCAINE 5% PATCH 1 PATCH TRANSDERM (17:19)
[2024-03-16] MEDS: DOCUSATE SODIUM 100 MG CAPSULE PO (17:19)
[2024-03-16] MEDS: KETOROLAC 15 MG/ML VIAL (*BKC) IV PUSH (19:59)
[2024-03-16] MEDS: ACETAMINOPHEN 325 MG TABLET 650 MG PO (19:59)
[2024-03-17 00:08] VITALS: BP 108/66; PULSE 71; RESP 16; TEMP 36.6; O2SAT 99
[2024-03-17] MEDS: KETOROLAC 15 MG/ML VIAL (*BKC) IV PUSH ×2 (01:58→10:09)
[2024-03-17] MEDS: ACETAMINOPHEN 325 MG TABLET 650 MG PO ×3 (01:59→17:05)
--- NOTE | 2024-03-17 05:05 | PC.NURSE ---
0450- FC d/c'd- pt up oob taking steps with standby assistance in room, without difficulty. New peripads and underwear placed on pt. CBCtayen and sent to lab.
[2024-03-17 05:06] LABS: Basophils Percent Auto 0.2 % (0.2-1.2); Eosinophils Absolute Auto 0.1 K/mm3 (0-0.3); Eosinophils Percent Auto 0.9 % (0-4.4); Hemoglobin 10.1 g/dL (12.0-15.0); Immature Granulocyte Percent A 0.8 % (0-0.5); Lymphocytes Absolute Auto 2.04 K/mm3 (0.9-3.2); Lymphocytes Percent Auto 16.7 % (18.3-44.2); Mean Corpuscular HGB Conc 32.6 g/dl (32-36); Mean Corpuscular Hemoglobin 31.7 pg (26-34); Mean Corpuscular Volume 97.2 fl (80-100); Monocytes Absolute Auto 0.7 K/mm3 (0.1-0.6); Monocytes Percent Auto 5.7 % (2.6-8.5); Neutrophils Absolute Auto 9.3 K/mm3 (1.3-6.7); Neutrophils Percent Auto 75.7 % (45.5-73.1); Platelet Count Result 198 k/mm3 (150-375); Red Blood Count 3.19 M/mm3 (4.2-5.4); Red Cell Distribution Width 13.6 % (11.5-14.5); White Blood Count 12.2 K/mm3 (4.5-10.0)
[2024-03-17 05:07] VITALS: BP 112/62; PULSE 84; RESP 16; TEMP 36.6; O2SAT 100
[2024-03-17 07:45] VITALS: BP 116/65; PULSE 54; RESP 16; TEMP 36.4; O2SAT 100
[2024-03-17] MEDS: SIMETHICONE 80 MG TAB.CHEW PO ×2 (10:08→17:05)
[2024-03-17] MEDS: FLUoxetine HCL 10 MG CAPSULE PO (10:08)
[2024-03-17] MEDS: MULTIVIT/MIN/PREN/FOL AC/IRON TABLET 1 TAB PO (10:08)
--- NOTE | 2024-03-17 11:40 | PC.NURSE ---
Mother verbalizes she is able to independently latch with appropriate positioning and alignment. She has some nipple discomfort and is responsively . is currently meeting outcomes for weight, output, jaundice, blood sugar and feeding frequencies of 8-12 times in 24 hours. Mother latched baby to the right breast in cross cradle hold. She supported her breast and latched optimally with an asymmetrical latch. Baby maintained the latch and nursed consistently. After initial latch mother states she has no nipple pain. Mother declines any additional assistance or education at this time. Mother is encouraged to call for assistance if her doesn?t latch, pain with latching, questions or concerns. Mother voiced understanding of information shared along with the mom/baby guide for an additional resource. Reported to the Primary RN.
[2024-03-17 12:25] VITALS: BP 113/55; PULSE 68; RESP 16; TEMP 37.2; O2SAT 100
--- NOTE | 2024-03-17 13:10 | PM.OBPNVD ---
OB - PN: Subj Subjective Date/time seen: 03/17/24 13:10 Narrative: Pain OK. Tolerating diet. Would like circumcision for son. OB - PN: Obj Data Labs 03/17/24 04:44 Labs: Laboratory Results - last 24 hr 03/17/24 04:44 WBC 12.2 H RBC 3.19 L Hgb 10.1 L Hct 31.0 L MCV 97.2 MCH 31.7 MCHC 32.6 RDW 13.6 Plt Count 198 MPV 10.0 Immature Gran % (Auto) 0.8 H Neut % (Auto) 75.7 H Lymph % (Auto) 16.7 L [place] % (Auto) 5.7 Eos % (Auto) 0.9 Baso % (Auto) 0.2 Lymph # (Auto) 2.04 [place] # (Auto) 0.7 H Eos # (Auto) 0.1 Baso # (Auto) 0.0 Abs Immat Gran (auto) 0.10 H Absolute Neuts (auto) 9.3 H Absolute Nucleated RBC 0.000 Nucleated RBC % 0.0 OB - PN A/P Plan Comments: A: POD#1, doing well. P: Routine care. Reviewed circ. Exam Narrative: AVSS I/O OK ABD soft, nontender, fundus firm. Incision c/d/i. EXT nontender
--- NOTE | 2024-03-17 13:38 | WPDANLDPN2 ---
Anes-Prog Note L&D Date/Time: 03/17/24 13:38 Comfortable throughout: section Neuraxial method: spinal Epidural/Spinal procedure site: clean & non-tender Neuro status: Neuro function grossly intact. Cardiovascular status: normal Respiratory status: normal Airway patency: baseline Mental status: baseline Post-Op hydration status: normal Vital Signs: Last Vital Signs Temp 37.2 C 03/17/24 12:25 Pulse 68 03/17/24 12:25 Resp 16 03/17/24 12:25 BP 113/55 L 03/17/24 12:25 Pulse Ox 100 03/17/24 12:25 O2 Del Method Room Air 03/16/24 16:00 Pain score (VAS): 1 I/O: Intake & Output 03/16/24 03/17/24 03/17/24 23:59 07:59 15:59 Intake Total 400 1000 Output Total 2642 8322 Balance -6423 -3438 Post-procedural complaints: none Patient feedback: Patient satisfied with anesthetic care.
--- NOTE | 2024-03-17 13:38 | WPDANLDNPN2 ---
Anes-Prog Note L&D-Neuraxial Date/Time: 03/17/24 13:38 Neuraxial medications: intrathecal PF morphine Opiod-related complaints: none Patient feedback: Patient satisfied with post-operative pain management.
[2024-03-17] MEDS: DOCUSATE SODIUM 100 MG CAPSULE PO (17:05)
[2024-03-17] MEDS: IBUPROFEN 600 MG TABLET PO (17:05)
[2024-03-17 20:14] VITALS: BP 111/65; PULSE 80; RESP 18; TEMP 36.8; O2SAT 99
[2024-03-18] MEDS: ACETAMINOPHEN 325 MG TABLET 650 MG PO ×5 (00:19→19:50)
[2024-03-18] MEDS: LIDOCAINE 5% PATCH 1 PATCH TRANSDERM (00:19)
[2024-03-18] MEDS: IBUPROFEN 600 MG TABLET PO ×4 (00:19→19:50)
[2024-03-18] MEDS: DOCUSATE SODIUM 100 MG CAPSULE PO ×2 (07:05→15:55)
[2024-03-18] MEDS: MULTIVIT/MIN/PREN/FOL AC/IRON TABLET 1 TAB PO (07:05)
[2024-03-18] MEDS: SIMETHICONE 80 MG TAB.CHEW PO ×3 (07:05→15:55)
[2024-03-18] MEDS: FLUoxetine HCL 10 MG CAPSULE PO (07:06)
[2024-03-18 07:45] VITALS: BP 125/70; PULSE 65; RESP 18; TEMP 36.5; O2SAT 100
--- NOTE | 2024-03-18 08:51 | PM.OBPNVD ---
OB - PN: Subj Subjective Date/time seen: 03/18/24 08:51 Narrative: Pain OK. Tolerating diet. Would like to go home. OB - PN: Obj Data Labs 03/17/24 04:44 OB - PN A/P Plan Comments: A: POD#3, doing well. P: Home to f/u 4 weeks. Exam Narrative: AVSS ABD soft, nontender, fundus firm. Incision c/d/i. EXT nontender
--- NOTE | 2024-03-18 12:00 | PC.NURSE ---
Mother verbalizes she is able to independently latch with appropriate positioning and alignment. She denies any nipple discomfort and is responsively . Infant is currently meeting outcomes for weight, output, jaundice, blood sugar and feeding frequencies of 8-12 times in 24 hours. Mother declines any additional assistance or education at this time. She had baby latched to the left breast in football hold. We discussed cluster feeding and milk production, as well as feeding on demand. Mother is encouraged to call for assistance if her doesn?t latch, pain with latching, questions or concerns. Mother voiced understanding of information shared along with the mom/baby guide for an additional resource. Reported to the Primary RN.
[2024-03-18 20:00] VITALS: BP 106/87; PULSE 74; RESP 18; TEMP 36.7; O2SAT 100
[2024-03-19] MEDS: IBUPROFEN 600 MG TABLET PO ×2 (02:00→08:14)
[2024-03-19] MEDS: ACETAMINOPHEN 325 MG TABLET 650 MG PO ×2 (02:00→08:14)
[2024-03-19] MEDS: DOCUSATE SODIUM 100 MG CAPSULE PO (08:14)
[2024-03-19] MEDS: SIMETHICONE 80 MG TAB.CHEW PO (08:14)
[2024-03-19] MEDS: MULTIVIT/MIN/PREN/FOL AC/IRON TABLET 1 TAB PO (08:14)
[2024-03-19] MEDS: FLUoxetine HCL 10 MG CAPSULE PO (08:14)
[2024-03-19 08:30] VITALS: BP 122/82; PULSE 57; RESP 16; TEMP 36.9; O2SAT 100
--- NOTE | 2024-03-19 12:05 | PM.OBPNVD ---
OB - PN: Subj Subjective Date/time seen: 03/19/24 12:05 Narrative: Pain OK. Tolerating diet. Would like to go home. OB - PN: Obj Data Labs 03/17/24 04:44 OB - PN A/P Plan Comments: A: POD#3, doing well. P: Home to f/u 4 weeks. Exam Narrative: AVSS ABD soft, nontender, fundus firm. Incision c/d/i. EXT nontender
== END 2024-03-19 13:25 | disposition home or self-care (01) | DRG 788 ==
LOC: ANHLDR 10:05 → ANHOB2 15:50
PROVIDERS: Admitting Provider Obstetrics & Gynecology; Visit Provider Obstetrics & Gynecology
PROC: 10D00Z1 Extraction of Products of Conception, Low, Open Approach (ICD-10-PCS; CPT 59514; principal; 2024-03-16 12:00)
DX: O34.211 Maternal care for low transverse scar from previous cesarean delivery (principal); Z37.0 Single live birth; Z3A.39 39 weeks gestation of pregnancy; O77.0 Labor and delivery complicated by meconium in amniotic fluid; O69.81X0 Labor and delivery complicated by cord around neck, without compression, not applicable or unspecified
CPT/HCPCS: 36415; 85025; 86703; A9270; G0432; J0690; J1885; J2274; J2405; J2590; J7120